=== PATIENT | male | born 1960 | race Caucasian/White ===

== ENCOUNTER 2017-06-14 16:55 | Inpatient (IN) | payer OTHER ==
[~2017-06-14] VITALS: Ht 167.6 cm; Wt 70.3 kg
--- NOTE | ~2017-06-14 | WRIGHTHP ---
[place], [place] PATIENT HISTORY AND PHYSICAL EXAM NAME: JILLIAN JIMÉNEZ UNIT #: [id number] ROOM: 316 DOCTOR: RIO MALDONADO MD BIRTHDATE: [birth year] DOS: 06/15/2017 INITIAL PSYCHIATRIC EVALUATION CHIEF COMPLAINT: "You can' help me." HISTORY OF PRESENT ILLNESS: This is a 57-year-old white male who was admitted to the ICU after an attempted suicide. 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 He sat there for some time before eventually coming down and willingly going to the Emergency Room at [facility] for an evaluation. The patient admits to having ongoing depression and feeling hopeless and helpless and worthless. He has not been functioning well at work or at home. He reports that he has not been eating well and has absolutely no desire to eat and his sleep has been horribly disturbed. 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 The patient did live in [place] and lived through ____ and does have some posttraumatic stress disorder symptoms related to this event. This seems to be one of the precipitating factors. He was subsequently stabilized because of low potassium on ICU and now transferred to the B[facility] for further evaluation, to engage in individual and null milieu activity and to stabilize on medication. PAST MEDICAL HISTORY: Remarkable for social drinking. He does not use illicit drugs and does not smoke. Past medical history is remarkable for hypertension, history of heart surgery. MENTAL STATUS: The patient is alert and oriented x 3. Mood is overwhelmingly depressed. Affect is flat, blunted and constricted. His speech is almost whisper like and at times he will give very short responses and other times he does try to elaborate, but for the most part it seems to be a chore for him even to talk. He endorses multiple neurovegetative symptoms and fleeting suicidal thoughts. He does not have any suggestion of hypomania or nia and I do not see the presence of any auditory or visual hallucinations. No delusions were voiced. No paranoia is present. Memory for the most part is intact. STRENGTH: The patient is verbal, ambulatory and relatively healthy. DIAGNOSIS: Major depression, recurrent, severe. PLAN: I have already started him on Remeron 15 mg at bedtime. I will maintain this dose at this time. I will see if Dr. Bora Figueroa, psychologist can be reconsulted. The patient did have the opportunity to see Dr. Figueroa while in ICU and found him to be empathic and caring and would like to speak to him further. Routine screening examination show him to have a low vitamin D level of 28.3, so I will augment with vitamin D 50,000 International Units weekly, also his ammonia level is mildly elevated. Before I treat, I will recheck to make certain that this is not lab error. If the secondary ammonia level comes back elevated, we will treat with Chronulac. We will attempt to engage him in individual and null milieu activity. At the present time, he has MRSA of the nares causing him to be in isolation. We will see if this can be adjusted so [place], [place] PATIENT HISTORY AND PHYSICAL EXAM NAME: JILLIAN JIMÉNEZ UNIT #: [id number] ROOM: 316 DOCTOR: RIO MALDONADO MD BIRTHDATE: [birth year] that he can better take part in null activities. RIO MALDONADO MD CM:HISPHYS:PATIENT HISTORY AND PHYSICAL EXAMINATION [id number] RIO MALDONADO MD 06/15/17 1026 interface
--- NOTE | ~2017-06-14 | DS ---
[place], [place] DISCHARGE SUMMARY NAME[id number] UNIT #: [id number] ROOM: 316 DOCTOR: RIO MALDONADO MD BIRTHDATE: [birth year] DOS: 06/20/2017 CHIEF COMPLAINT: "You can't help me." HISTORY OF PRESENT ILLNESS: This is a 57-year-old white male who was admitted to the ICU after an apparent attempted suicide. 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 After sometime he willingly came down from the roof and came to the Emergency Room at [facility] for evaluation. Once in the Emergency Room, he admitted to ongoing depression with feeling hopeless and helpless and worthless. He had not been functioning well at work and at home and his ADLs were suffering. Because he was in such a dire straits and his potassium was extremely low, he was admitted to ICU for close monitoring. While in ICU, he had the opportunity to see Dr. Bora Figueroa, psychologist, who felt that the patient represented a significant risk of harming and should come to the U for crisis stabilization and for medication monitoring. PAST MEDICAL HISTORY: Remarkable for history of social drinking. He does not use any illicit drugs, nor does he smoke cigarettes. Past medical history is remarkable for hypertension and a history of heart surgery. STRENGTHS: The patient has a very supportive family situation, has good verbal skills and is relatively healthy. SUMMARY OF HOSPITAL COURSE: The patient was admitted to the unit where he was started on Remeron 15 mg at bedtime. He tolerated the Remeron well. It was eventually increased to its maximum dose during his stay of 30 mg at bedtime with good results. Screening examinations upon admission showed him to have a low vitamin D level of 28.3, so he was started on vitamin D 50,000 International Units weekly. During his stay, Dr. Santos was covering and felt that there was a significant anxiety component causing his depression to exacerbate. During the weekend of coverage, he started him on Klonopin 0.5 mg twice daily and this did have a rather dramatic effect on the patient. The patient who previously had isolated himself to his room and was afraid to go out to groups suddenly exited his room and was able to attend to group functions. On the day that I saw him after several days of the Klonopin, he did complain to me of being somewhat overly tired during the day and felt that he could sleep all day long if he was allowed to. At that point in time, I switched his Klonopin from 0.5 mg twice daily to 1 mg at bedtime, again with good benefits and that it did have its antianxiety effects, but the daytime sedation did dissipate. The patient had improved sufficiently by June 20 to return home. He will have followup at [facility] in the [facility] and he will be given the name of a possible job placement option for him as well. MENTAL STATUS AT DISCHARGE: The patient is alert and oriented to person, place and time. Mood does seem to be strongly trending towards euthymia. Affect is much more appropriate. There are no symptoms suggestive of hypomania or nia. There are no gross psychotic symptoms. He convincingly denies suicidal thoughts, homicidal thoughts or any self-injurious thoughts and voices a [place], [place] DISCHARGE SUMMARY NAME: JILLIAN JIMÉNEZ UNIT #: [id number] ROOM: [facility] DOCTOR: RIO MALDONADO MD BIRTHDATE: [birth year] positive plan for the future, stating that he will do whatever he has to do for his loving and children. Memory for the most part is fully intact. DISCHARGE DIAGNOSIS: Major depression, recurrent, severe. DISPOSITION: The patient is to return home. Scripts have been printed and will be sent with him. He will have followup at [facility] in [place]. He is medically and psychiatrically stable. His biopsychosocial needs are adequately being met by his family, the community at large and by [facility]. RIO MALDONADO MD CM:DISCHAZAM [id number] RIO MALDONADO MD 06/20/17 1130 interface
--- NOTE | ~2017-06-14 | PR ---
[place], [place] PROGRESS NOTE NAME: [id number] UNIT #: [id number] ROOM: 316 DOCTOR: RIO MALDONADO MD BIRTHDATE: [birth year] DOS: 06/19/2017 CHIEF COMPLAINT: "I have lost my job, I don't know what I am going to do." SUMMARY OF THE VISIT: The patient was interviewed in the dining area where he was eating his breakfast. He was just about done. He stopped and engaged in conversation, reporting to me that he has lost his job. At the time that I was talking to him, I did not know if this was reality or not or if this was part of his delusion. In reality, he was informed by his work place that he was terminated. Staff report that he was isolative until he was given Klonopin by Dr. Santos and this seemed to have a dramatic improvement. He, however, complains of sometimes feeling overly sedate and wanting to sleep too much during the day. MENTAL STATUS: He is alert and oriented with some time gaps. Mood still is depressed with very anxious overtones. He endorses a combination of neurovegetative symptoms along with hyperautonomic nervous system arousal. There is no nia or hypomania. There are no gross psychotic symptoms and memory is intact. PLAN: I will maintain his Remeron at 30 mg at bedtime, but change Klonopin to 1 mg at bedtime, discontinuing the a.m. dose so that he is sleeping well during the night and is hopefully less somnolent during the day. We will continue to engage in individual and null milieu activity, returning to the least restrictive environment when psychiatrically stable. RIO MALDONADO MD CM:PNTRANS [phone] RIO MALDONADO MD 06/19/17 1006 interface
--- NOTE | ~2017-06-14 | PR ---
[place], [place] PROGRESS NOTE NAME[id number] UNIT #: [id number] ROOM: 316 DOCTOR: KAYDEN BANERJEE MD BIRTHDATE: [birth year] DOS: 06/17/2017 SUBJECTIVE: The patient seen and I spoke with the staff. Per staff, the patient is isolated, very flat, stays in his room all the time. He slept well last night and he also took his medication. The patient was in his room on the bed. When I called his name, he looked at me, but did not answer any question. He does nod his head. He reports being anxious. He denied any suicidal ideation, intent or plan. He denied any side effect from the medication. MENTAL STATUS EXAMINATION: The patient was alert, not cooperative and not forthcoming. He did not talk about his mood, but his affect was very flat. He denied auditory or visual hallucination. No delusion or paranoia noted. He denied any suicidal ideation, intent or plan. He also denied any homicidal ideation, intent or plan by nodding his head. Insight and judgment impaired. PLAN: 1. Continue current medication and care. 2. Encourage activity and groups. 3. Continue 1:1 therapy, psychoeducation, and coping skill. KAYDEN BANERJEE MD CM:PNTRANS 06 KAYDEN BANERJEE MD 06/18/17 0036 interface
--- NOTE | ~2017-06-14 | PR ---
[place], [place] PROGRESS NOTE [id number] UNIT #: [id number] ROOM: 316 DOCTOR: MANOJ BOLIVAR,TERELL PRATER) BIRTHDATE: [birth year] DOS: 06/19/2017 SUBJECTIVE: At the present time, this patient has been transferred to the [facility] Unit at [facility]. 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 He had been quite depressed for several months and decided that he could not live any longer. I did evaluate this patient in the intensive care unit and at that time, he did admit to being quite depressed. He is still very depressed, but denies any suicidal ideation or plan. Regardless, he is severely depressed and I would be concerned for his safety if he was discharged from the hospital at this time. He cannot give an exact reason for his depression, other than to say he will never be able to work again and will probably remain in the hospital the rest of his life. I explained to him that he would not remain in the hospital the rest of his life and that he probably would be able to work again due to the fact that there are very few employees with his credentials. This did not seem to reassure him unfortunately. He is clearly competent, but is clearly very depressed. I did indicate to the patient that I would also see him again on June 20. Hopefully, his depression will somewhat relent over the next few days because it is clear he is not able to be discharged home at this time. ASSESSMENT: Major depressive disorder - recurrent - severe. RECOMMENDATIONS: I will reevaluate this patient on June 20 and discussed the case with Dr. Rm. Thank you very much for this consult. TERELL ARANDA ED.D CM:PNSUZY [id number] [phone] RIO ARANDA ED.D (BOB) 06/19/17 2338 interface
--- NOTE | ~2017-06-14 | PR ---
[place], [place] PROGRESS NOTE NAME: [id number] UNIT #: [id number] ROOM: 316 DOCTOR: SERGIO HUERTA DO BIRTHDATE: [birth year] DOS: 06/16/2017 CHIEF COMPLAINT: "I am still feeling sad. SUMMARY OF VISIT: The patient is a 57-year-old white male who was admitted to the U after a stay in the ICU, status post attempted suicide prior to presentation. Currently on hospital day 2 with persistently depressed mood. The patient was evaluated in his room this morning. He did not appear to be in any distress. He continues to have limited verbalization of his needs. He did not readily engage in conversation. His responses were limited to 1or 2 word replies. He did state that he missed his family and was concerned about his family's wellbeing. He did report feelings of sadness that have been persistent. The patient did not appear to be experiencing any hallucinations at that time. MENTAL STATUS EXAMINATION: The patient is alert and oriented to person, place and time. His mood is depressed. His affect is flat and withdrawn. His speech is still limited to 1 or 2 word responses. He continues to show multiple neurovegetative symptoms, but no longer expresses suicidal ideation. He does not seem to be responding to internal stimuli. No thoughts of delusions or paranoia were present at the time. Short term memory is intact. The patient is unwilling to engage in conversation beyond head nods at certain points during the evaluation. PLAN: 1. We have increased Remeron from 15 mg to 22.5 mg at bedtime. 2. The patient lives in the [facility]. We have worked with social media community manager to start [place] counseling planning upon discharge. 3. Isolation precautions were discontinued by the hospitalist team. Bactroban was ordered. The patient is now able to participate in null activities. This was explained to the patient. He voiced understanding. 4. Disposition. The patient likely to be discharged sometime next week pending on psychiatric and medical status. We will continue to engage the patient in individual and null milieu activity, returning to the least restrictive environment when psychiatrically stable. Sergio Huerta DO [place], [place] PROGRESS NOTE NAME: JILLIAN JIMÉNEZ UNIT #: [id number] ROOM: 316 DOCTOR: SERGIO HUERTA DO BIRTHDATE: [birth year] RIO MALDONADO MD CM:CRISTIANO [id number] SERGIO HUERTA DO 06/16/17 215 interface
--- NOTE | ~2017-06-14 | PR ---
[place], [place] PROGRESS NOTE [id number] UN[facility] #: [id number] ROOM: 316 DOCTOR: KAYDEN BANERJEE MD BIRTHDATE: [birth year] DOS: 06/18/2017 PSYCHIATRIC PROGRESS NOTE SUBJECTIVE: The patient was seen and spoke with the staff. Per staff, the patient is very depressed. His family came yesterday, made him to walk, stays mute most of the time. Medication compliant. No side effects. The patient was sitting on the chair in his room, very flat, did not talk with me, but when I asked him that if he is feeling depressed, he nodded his head. He denied any thoughts of harming himself by nodding his head also. MENTAL STATUS EXAMINATION: Pleasant, cooperative, described his mood as "depressed." Affect was very flat, constricted. He denied auditory or visual hallucination. No delusion or paranoia noted. He denied suicidal ideation, intent or plan. He also denied homicidal ideation, intent or plan. Insight and judgment poor to fair. PLAN: 1. I will increase his Remeron to 30 mg at night. 2. I will add clonazepam 0.5 mg twice a day for 3 to 4 days for catatonia. 3. Continue redirection. 4. Supportive care. 5. Final medication management and discharge plan by the regular team. KAYDEN BANERJEE MD CM:PNTRANS 12 09 KAYDEN BANERJEE MD 06/18/172108 interface
[~2017-06-14 16:55] MED LIST: HYDR25T PO; LISINOPRIL20 MG PO; MIRTAZAPINE15 M2 PO; PRINIVIL10 MG PO; TRAZODONE50 MG PO; ZOLOFT25 MG PO
[2017-06-14 17:12] VITALS: BP 165/98
[2017-06-14 17:30] VITALS: BP 165/98
[2017-06-14 19:57] VITALS: BP 160/98
[2017-06-15 06:24] LABS: BASO # 0.1 10*3/uL (0.0-0.1); BASO % 0.4 % (0.0-1.0); EOS # 0.1 10*3/uL (0.0-0.4); EOS % 0.7 % (1.0-4.0); HEMATOCRIT 50.1 % (42.0-52.0); HEMOGLOBIN 16.2 g/dl (14.0-18.0); LYMPH # 4.5 10*3/uL (1.3-4.4); LYMPH % 34.8 % (27.0-41.0); MEAN CELL VOLUME 88.2 fl (80.0-94.0); MEAN CORPUSCULAR HGB 28.5 pg (27.0-31.0); MEAN CORPUSCULAR HGB CONC 32.3 g/dl (33.0-37.0); MEAN PLATELET VOLUME 9.4 fl (9.6-12.3); MONO # 1.1 10*3/uL (0.1-1.0); MONO % 8.2 % (3.0-9.0); NEUT # 7.2 10*3/uL (2.3-7.9); NEUT % 55.4 % (47.0-73.0); PLATELET COUNT AUTOMATED 302 10*3/uL (130-400); RED BLOOD COUNT 5.68 10*6/uL (4.50-5.90); RED CELL DISTRI WIDTH 13.9 % (0-14.5)
[2017-06-15 06:40] LABS: ALBUMIN 3.7 gm/dl (3.1-4.5); CREATININE 1.58 mg/dL (0.70-1.30); POTASSIUM 4.3 mmol/L (3.5-5.1); TOTAL PROTEIN 7.9 gm/dL (6.4-8.2)
[2017-06-15 06:48] LABS: THYROID STIM HORMONE (HS) 0.712 uIU/ml (0.358-4.75)
[2017-06-15 07:52] VITALS: BP 132/66
[2017-06-15 08:31] LABS: VITAMIN D, 25-HYDROXY 28.3 ng/mL (30-100)
[2017-06-15 19:12] VITALS: BP 110/79
[2017-06-16 08:13] VITALS: BP 101/68
[2017-06-16 20:26] VITALS: BP 107/70
[2017-06-17 08:00] VITALS: BP 110/76
[2017-06-17 20:00] VITALS: BP 112/68
[2017-06-18 08:48] VITALS: BP 120/80
[2017-06-18 20:27] VITALS: BP 103/80
[2017-06-19 07:33] VITALS: BP 124/70
[2017-06-19 20:00] VITALS: BP 105/65
[2017-06-20 08:55] VITALS: BP 120/62
[2017-06-20] MEDS ORDERED: CLONAZEPAM1 MG PO (11:12)
[2017-06-20] MEDS ORDERED: MIRTAZAPINE30 M2 PO (11:12)
[2017-06-20] MEDS ORDERED: Vitamin D PO (11:47)
[2017-06-20] MEDS ORDERED: CEPHALEXIN500 M1 PO (17:16)
== END 2017-06-20 13:27 | disposition home or self-care (01) | DRG 885 ==
LOC: 3N 16:55
PROVIDERS: Psychiatry & Neurology Psychiatry
DX: F33.2 Major depressive disorder, recurrent severe without psychotic features (principal); R65.11 Systemic inflammatory response syndrome (SIRS) of non-infectious origin with acute organ dysfunction; R45.851 Suicidal ideations; R73.9 Hyperglycemia, unspecified; E78.5 Hyperlipidemia, unspecified; I10 Essential (primary) hypertension; Z80.8 Family history of malignant neoplasm of other organs or systems